=== PATIENT | female | born 1940 | race Caucasian/White ===

== ENCOUNTER → 2018-02-01 | Day surgery (SDC) | payer MEDICARE ==
[2018-01-28 11:20] VITALS: BMI 30.4
[~2018-02-01] MED LIST: Bupivacaine HCl 0.5%/Epinephrine 1:200,000/PF 30 ml Vial ONE; CEFAZOLIN/Water 2 GM/20 ML SYRINGE ONE; Fentanyl 100 MCG/2 ML VIAL ONE; HYDROmorphone 0.5 MG/0.5 ML SYRINGE ONE; Midazolam HCl 2 mg/2 ml Vial ONE; Thrombin 5000 UNITS/5 ML VIAL ONE
--- NOTE | 2018-02-01 08:27 | HP ---
HISTORY OF PRESENT ILLNESS: The patient presents for 2 separate complaints. First of which is fairl y convincing L5 radiculopathy manifesting as hip pain, posterolateral leg pain down to the calf in la teral aspect. She certainly has reason on imaging and then secondarily she has hip flexor weakness w ith significant L1-L2 stenosis with negative x-rays of her hip. The L5 pains have improved some with conservative treatment, but her weakness continues to be a significant problem and is now causing ga it disturbance and imbalance. She hopes to get this treated as soon as possible. PAST MEDICAL HISTORY: Significant for hypertension, hyperlipidemia, chronic pain problems. PAST SURGICAL HISTORY: Unspecified neck, right foot, left foot, lumbar decompression x2, and 2 addit ional neck surgeries. PHYSICAL EXAMINATION: NEUROLOGIC: The patient is alert and oriented x3. Gait is severely altered. She has 3/5 strength i n the left hip flexor muscles and now also has 4/5 strength in the right. ASSESSMENT: Lumbar stenosis. PLAN: Dr. Jones met with the patient, reviewed imaging, and advocated for an L1-L2 decompression. H e explained to the patient the risks, benefits, and alternatives of the procedure. The patient expre ssed understanding and would like to move forward with surgery as discussed. I do believe the patien t is mentally competent and capable of making medical decisions for herself and we will move forward with surgery as planned. Kvng Mendoza PA-C dictating for Dr. Jones.
--- NOTE | 2018-02-01 08:30 | OP ---
DATE OF PROCEDURE: 02/01/2018 SURGEON: Jimmy Jones M.D. APPLICATION PERFORMANCE ENGINEER: Ron Mendoza PA-C. INDICATION: Pain. DIAGNOSIS: Lumbar stenosis with associated neurogenic claudication. PROCEDURE: L1-2 lumbar decompression. ANESTHESIA: General. TECHNIQUE: The patient was brought into the operating room and placed under general anesthesia. She was flipped from a supine to prone position on the operating room table. A linear incision was plan delmer spanning L1 and L2. After prepping and draping and after an appropriate pause, the incision was created. The soft tissues were swept away from midline. Self-retaining retractors placed in the wou nd for optimal exposure. After confirming the appropriate level with C-arm fluoroscopy, an Adson angeline geurs as well as a high-speed cutting drill bit, 2, 3 and 4 mm Kerrisons were used to perform a thania ectomy at L1-2. After decompressing the L1-L2 segment, the wound was irrigated. Hemostasis was main tained throughout. The wound was then closed in anatomic layers and a pressure dressing was applied. There were no known procedural complications.
== END ==
LOC: SDC 05:29 → MERGE 11:02
PROVIDERS: ATTEND Neurological Surgery
PROC: 01NB0ZZ Release Lumbar Nerve, Open Approach (ICD-10-PCS; principal; 2018-02-01)
DX: M48.062 Spinal stenosis, lumbar region with neurogenic claudication (principal); I10 Essential (primary) hypertension; E78.5 Hyperlipidemia, unspecified; Z79.899 Other long term (current) drug therapy; Z98.890 Other specified postprocedural states
CPT/HCPCS: 76001; 96374; J0670; J1170; J2250; J3010

== ENCOUNTER 2018-05-20 09:34 | Outpatient (CLI) | payer MEDICARE ==
--- NOTE | 2018-05-20 11:27 | CT ---
CT LUMBAR SPINE: Multiple axial tomograms were obtained through the lumbar spine with multiplanar reconstruction. INDICATION: Lumbar radiculopathy. Prior back surgery. COMPARISON: Comparison is made to MRI lumbar spine dated 01/20/2017. FINDINGS: Vertebral body height is maintained. There are moderate to severe degenerative changes. Degenerativ e disk changes are seen at all levels with vacuum phenomenon noted at L1-2, L2-3, L4-5, and L5-S1. O steophytes in the lumbar vertebrae throughout, most prominent at L4, L5, and S1 levels. At L1-2, broad-based disk bulge flattens the thecal sac. Posterior laminectomy change. Facet hypert rophy without significant central canal stenosis. There is asymmetric disk bulge to the right which encroaches into the right foramina and may contact the exiting right L1 nerve root. At L2-3, diffuse disk bulge. Facet and ligamentous hypertrophy. Moderate central canal stenosis. A symmetric disk bulge to the left produces left foraminal encroachment and extends laterally on the le ft, possibly contacting the exiting left L2 nerve root. At L3-4, broad-based disk bulge with facet and ligamentous hypertrophy results in moderate central ca nal stenosis. Right foraminal narrowing due to disk bulge and facet hypertrophy. At L4-5, diffuse disk bulge with posterior osteophytes and broad-based disk bulge flattening the thec al sac. Prominent facet hypertrophy. Moderate to severe central canal stenosis and bilateral forami nal stenosis is present. There is a large gas pocket measuring 8-10 mm in the anterior spinal canal on the right which extends into the right foramina. This gas pocket displaces the exiting right L4 nerve root and probably dis places the traversing right L5 nerve root within the canal. This gas pocket represents protrusion fr om intervertebral body vacuum phenomenon at the L4-5 disk. At L5-S1: Loss of disk space. Mild disk bulge. Facet hypertrophy. No significant central canal st enosis. Bilateral foraminal stenosis. IMPRESSION: 1. Degenerative disk changes throughout the lumbar spine with vacuum phenomenon at multiple levels a s described. A large gas pocket is seen in the anterior spinal canal on the right at L4-5 extending into the right foramen as described above. 2. Central canal and foraminal stenosis at multiple levels as described. POS: [facility]
== END 2018-05-20 09:35 | disposition home or self-care (01) ==
LOC: TBSIIMAG 09:34
PROVIDERS: ATTEND Neurological Surgery
DX: M51.16 Intervertebral disc disorders with radiculopathy, lumbar region (principal); M99.84 Other biomechanical lesions of sacral region; M99.83 Other biomechanical lesions of lumbar region; M48.061 Spinal stenosis, lumbar region without neurogenic claudication
CPT/HCPCS: 72131

== ENCOUNTER 2018-07-11 07:57 | Outpatient (CLI) | payer MEDICARE ==
--- NOTE | 2018-07-11 10:13 | RAD ---
FOUR VIEWS OF THE LUMBOSACRAL SPINE WITH BENDING: COMPARISON: MRI LUMBAR SPINE 07/11/2018. HISTORY: Low back pain that radiates down the left leg with left leg weakness. FINDINGS: AP, lateral, flexion, and extension views of the lumbosacral spine were performed. There is interver tebral disk space narrowing at L4-L5 and L5-S1. There is slight retrodisplacement of L5 vertebral lesley dy in relation to S1. The alignment of the vertebral bodies is unchanged with flexion and extension. Moderate osteophytes are seen throughout the lumbar spine. Posterior facet arthrosis is seen in th e lumbar spine. IMPRESSION: Degenerative changes of the lumbar spine with unchanged alignment with bending. POS: [facility]
--- NOTE | 2018-07-11 10:45 | MRI ---
PRE AND POSTCONTRAST ENHANCED MRI IMAGES OF THE LUMBAR SPINE: DATE: 07/11/2018. COMPARISON: Comparison is made to a previous exam from 12/20/2016. TECHNIQUE: Multiplanar, multisequence pre- and postcontrast-enhanced MRI images of the lumbar spine obtained. RADIOGRAPHIC FINDINGS: T12-L1: There is some disk desiccation seen. There is mild facet hypertrophy. A small amount of fl uid is seen in the left T12-L1 facet joint. Left T12-L1 foraminal and far lateral broad-based disk p rotrusion is again seen unchanged since the previous exam. L1-2: The patient has interval L1 and L2 laminectomy changes and interval surgery at this level. So me epidural scarring is seen in the posterior aspect of the L1-2 epidural space. The central canal i s patent. There does appear to be a broad-based disk bulge. Moderate bilateral neural foraminal jenna rowing seen due to facet hypertrophic changes. L2-3: Bilateral facet and ligamentum flavum hypertrophy is seen. This results in mild central and l ateral recess stenosis. Moderate bilateral neural foraminal narrowing is also seen due to facet hype rtrophic changes. L3: There is an interosseous hemangioma seen. There is bilateral facet hypertrophy at L3-4 resultin g in a moderate degree of central and lateral recess stenosis extending into the epidural space. The re is grade I anterolisthesis of L3 on L4. The degree of central and lateral recess stenosis is paloma lar to previous comparison exam from 2017. L4-5: Disk desiccation is seen. There is a broad-based disk bulge with bilateral facet hypertrophy. This results in a mild to moderate central and lateral recess stenosis. There is moderate left and severe right L4-5 neural foraminal narrowing. There is a right L4-5 neural foraminal disk extrusion which was seen on the patient's previous comparison MRI and remains in place markedly compressing th e right exiting L4 nerve root. L5-S1: Disk desiccation is seen. There is a broad-based disk-osteophyte complex centrally compressi ng the thecal sac with moderate right and left neural foraminal narrowing seen. Bilateral facet hype rtrophic changes also seen. IMPRESSION: 1. Interval surgical changes seen at the posterior aspect of the L2 level. 2. Severe right L4-5 neural foraminal narrowing due to remaining right L4-5 neural foraminal narrowi ng. POS: [facility]
== END 2018-07-11 07:58 | disposition home or self-care (01) ==
LOC: SCSMRI 07:57
PROVIDERS: ATTEND Anesthesiology Pain Medicine
DX: M47.26 Other spondylosis with radiculopathy, lumbar region (principal); M48.061 Spinal stenosis, lumbar region without neurogenic claudication; Z98.890 Other specified postprocedural states
CPT/HCPCS: 72120; 72158; 82565

== ENCOUNTER 2018-07-12 09:01 | Inpatient (IN) | payer MEDICARE ==
[2018-07-12 09:33] LABS: #Basophils 0.1 thou/uL (0.0-0.2); #Lymphocytes 1.8 thou/uL (1.20-3.40); #Monocytes 0.7 thou/uL (0.11-0.59); #Neutrophils 7.1 thou/uL (1.40-6.50); %Basophils 0.6 % (0.0-1.0); %Eosinophils 0.4 % (0.0-10.0); %Lymphocytes 18.5 % (21.0-51.0); %Monocytes 7.3 % (0.0-10.0); %Neutrophils 73.1 % (42.0-75.0); Hemoglobin 14.7 g/dL (12.0-16.0); Mean Corpuscular HGB CONC 32.5 g/dL (32.0-36.0); Mean Corpuscular Hemoglobin 31.1 pg (27.0-31.0); Mean Corpuscular Volume 95.6 fL (78.0-98.0); Mean Platelet Volume 7.4 fL (7.4-10.4); Platelet Count 277 thou/uL (130-400); RBC Distribution Width 12.1 % (11.5-14.5); Red Blood Cell (RBC) Count 4.72 mill/uL (4.20-5.40); White Blood Cell (WBC) Count 9.8 thou/uL (4.8-10.8)
[2018-07-12 09:55] LABS: ALT (SGPT) 19 U/L (8-55); AST (SGOT) 20 U/L (5-34); Albumin 4.1 g/dL (3.4-4.8); Alkaline Phosphatase 86 U/L (40-150); Anion Gap 12 mmol/L (10-20); BUN (Urea Nitrogen) 16 mg/dL (9.8-20.1); Bilirubin, Total 1.1 mg/dL (0.2-1.2); CK (CPK) 27 U/L (29-168); Calc. Creatinine Clearance 0 mL/min (70-130); Calcium 9.9 mg/dL (7.8-10.44); Carbon Dioxide 30 mmol/L (23-31); Chloride 100 mmol/L (98-107); Estimated GFR-MDRD 73; Globulin 3.2 g/dL (2.4-3.5); Glucose 88 mg/dL (83-110); Potassium 4.7 mmol/L (3.5-5.1); Protein, Total 7.3 g/dL (6.0-8.3); Sodium 137 mmol/L (136-145)
[2018-07-12 09:59] LABS: Troponin I Less than 0.010 ng/mL (< 0.028)
--- NOTE | 2018-07-12 10:19 | RAD ---
PORTABLE CHEST: COMPARISON: 05/02/2011 study. HISTORY: The patient complained of low back pain and arrhythmia. FINDINGS: Heart size is enlarged. There is elevation to the left hemidiaphragm No signs of failure or focal i nfiltrates. IMPRESSION: 1. Elevated left hemidiaphragm. 2. Cardiomegaly. POS: [facility]
[2018-07-12] MEDS ORDERED: Fentanyl 100 MCG/2 ML VIAL ONE (10:24)
[2018-07-12] MEDS ORDERED: Diltiazem 125 MG/25 ML ONE (11:48)
[2018-07-12] MEDS ORDERED: Senokot S 8.6-50 MG TAB PO PRN (12:36)
[2018-07-12 13:52] LABS: CKMB 1.9 ng/mL (0-6.6); Troponin I Less than 0.010 ng/mL (< 0.028)
[2018-07-12] MEDS ORDERED: Acetaminophen 325 MG TAB ONE (13:54)
[2018-07-12 15:17] VITALS: BMI 31.4
[2018-07-12] MEDS: Acetaminophen 325 MG TAB PO PRN ×2 (17:31→21:38)
[2018-07-12 19:30] LABS: CKMB 1.5 ng/mL (0-6.6); Troponin I Less than 0.010 ng/mL (< 0.028)
--- NOTE | 2018-07-12 21:20 | HP ---
CHIEF COMPLAINT: Generalized weakness and palpitations. HISTORY OF PRESENT ILLNESS: The patient is a very pleasant 78-year-old female with past medical history of hypertension, hyperlipidemia, and chronic back pain, who presented to the hospital with complaints of on and off weakness, falls, flushing-like sensation going on for the past couple of weeks. The patient states that she has been noticing at home whenever she takes the blood pressure that her heart rate has been kind of elevated, so she came in to her primary care doctor's office today, found her heart rate to be 144, and then she was sent here for further evaluation. The patient stated that back in January, she did have a back surgery; however, she has to go back to surgery in the next few weeks since she has a disk herniation, which was not fixed on her prior surgery. The patient states that she has been having steroid shots. She has had 4 steroid injections in the last few weeks to months. The patient denies any chest pain or chest tightness. She denies any nausea, vomiting, or diarrhea. She just states that she feels weak, has been falling, and also just feels flushed when her heart rate is elevated. She denies any diaphoresis or any palpitations. The patient states that normally she does have left-sided lower extremity weakness from her disk herniation. PAST MEDICAL HISTORY: 1. Hypertension. 2. Hyperlipidemia. 3. Chronic back pain. PAST SURGICAL HISTORY: She has had lumbar decompression x2, two additional back surgeries. REVIEW OF SYSTEMS: All negative except for the ones mentioned above in the HPI. ALLERGIES: SHE HAS NO KNOWN DRUG ALLERGIES. MEDICATIONS: She currently does not have a list of her medications. FAMILY HISTORY: No history of diabetes or hypertension. SOCIAL HISTORY: She smokes cigarettes once in a while whenever she gets stressed. She does drink about 3 alcoholic beverages a day. Denies any history of withdrawal. She is a full code. She denies any other recreational drug use. PHYSICAL EXAMINATION: VITAL SIGNS: The patient initially when she came in, her heart rate was in the 139. She was given Cardizem bolus and was started on a drip. Currently, she is at 97. Blood pressure is 130s/80s, respirations are 18, 97.6 temperature, and 95% on room air. GENERAL: She is awake, alert, and oriented x3. Does not appear in any distress. CV: She is irregularly irregular, and no tachycardia is noted. LUNGS: She got mild crackles to the bilateral lower lung area. ABDOMEN: Soft and nontender. Bowel sounds are present x2. EXTREMITIES: She has no edema. Pedal pulses are present x2. Neurovascular sims, she does have left lower extremity weakness compared to her right. BACK: She does have some pain on palpation to her left lower back area. SKIN: No cuts, lesions, or bruises noted. HEENT: The patient does not appear to be dehydrated. LABORATORY DATA: Labs are as of the following. WBCs of 9.8, hemoglobin of 14.7, hematocrit of 45.1, and platelets of 277. Chemistries; sodium of 137, potassium of 4.7, BUN of 10, and creatinine of 0.77. Creatine kinase of 27. Troponin x1 was negative. LFTs are normal. D-dimer is pending. Chest x-ray that was done indicated elevated left hemidiaphragm and cardiomegaly. ASSESSMENT AND PLAN: The patient is a very pleasant 78-year-old female, who presents to the hospital with complaints of generalized weakness and flushing-like symptoms, and was found to have a heart rate in the 140s. 1. Atrial fibrillation/atrial flutter with rapid ventricular response. The patient was given Cardizem IV, and she has been started on a drip. Her CHADS-VASc score is between 3 to 4 points; however, given the fact that she has been getting steroid shots in her back and also planning on having surgery, I will hold off on the anticoagulation for now until she was seen by Cardiology. We will also get an echocardiogram for this patient. We will trend her troponins. If her D-dimer is elevated, I will do a CTA to rule out PE, but however, I think her atrial fibrillation/atrial flutter is a combination of pain which she has currently significantly and also she likes to drink her alcoholic beverages. 2. History of hypertension. We will continue her home medications. 3. Deep venous thrombosis prophylaxis. We will just put the patient on baby aspirin for now until she is evaluated by Cardiology. We will also put some SCDs. Job ID: [id number]
[2018-07-12] MEDS: Atorvastatin Calcium 40 MG TAB PO SCH (21:37)
--- NOTE | 2018-07-13 00:52 | CON ---
DATE OF CONSULTATION: 07/12/2018 HISTORY OF PRESENT ILLNESS: Sandra Lu is a 78-year-old white female, whom I have apparently seen in the past. In the past, she also gone by Cami Peterson. She states that I saw her in the office; however, I cannot find those records at this time. She has had problems with multiple back surgeries and most recent was in 01/2018. She continues to have significant back and leg pain and leg weakness. Consideration is given to another back surgery in the near future. She has been noticing increasing fatigue, increasing dyspnea on exertion, and may at times feel her heart racing for the last 2 to 3 weeks. She went to see her primary physician and was noted to have a rapid beat and was sent to the emergency room. She did have back injection on 07/[address] Potter. PAST MEDICAL HISTORY: Back problems. She denies any history of hypertension, diabetes, or hypercholesterolemia. MEDICATIONS: Gabapentin 100 mg p.r.n. ALLERGIES: CODEINE CAUSES GI UPSET. PAST SURGICAL HISTORY: Cholecystectomy, hysterectomy, bilateral foot surgery, bilateral knee replacement, neck surgery, and back surgery x3. SOCIAL HISTORY: She has 2 to 3 cigarettes per week. She occasionally has alcohol. REVIEW OF SYSTEMS: A 10-point review of systems was unremarkable except as noted above. PHYSICAL EXAMINATION: VITAL SIGNS: Blood pressure 140/68, pulse of 70, atrial flutter on the monitor. HEENT: PERRL. NECK: Supple. CHEST: Clear. CARDIAC: S1 and S2 normal without any S3 or S4. There is a 2/6 holosystolic murmur at left lower sternal border. Carotid upstrokes normal without bruits. ABDOMEN: Obese. Normal bowel sounds. Nontender. EXTREMITIES: Revealed no clubbing, cyanosis, or edema. NEUROLOGIC: Grossly intact. LABORATORY DATA: EKG on admission reveals atrial flutter with 2:1 block with rate of 139 per minute. She has been placed on intravenous Cardizem and heart rates running in the 70s with 4:1 block. Hemoglobin 14.7, hematocrit 45.1, white count 9800, and platelets 277,000. D-dimer less than 0.27. Sodium 137, potassium 4.7 , chloride 100, carbon dioxide 30, BUN 16, and creatinine 0.77. MB and troponin I are normal x2. IMPRESSION: 1. Atrial flutter, rate controlled now with intravenous Cardizem. 2. Possible fourth back surgery in the near future. She just had back injection with Dr. Potter 3 days ago. 3. Obesity. 4. Smoker. PLAN: The patient will be continued on intravenous Cardizem. Echocardiogram will be performed to evaluate left ventricular function. She should be anticoagulated; however, we will check with Neurosurgery since the patient had recent spinal injections. This is Sunday evening and Sunday morning, Electrophysiology will be consulted and hopefully, she can undergo flutter ablation that day. Job ID: [id number] [facility]
[2018-07-13 05:08] LABS: #Eosinphils 0.1 thou/uL (0.0-0.7); #Lymphocytes 1.7 thou/uL (1.20-3.40); #Monocytes 0.6 thou/uL (0.11-0.59); #Neutrophils 3.2 thou/uL (1.40-6.50); %Basophils 0.7 % (0.0-1.0); %Eosinophils 2.1 % (0.0-10.0); %Lymphocytes 29.8 % (21.0-51.0); %Monocytes 11.4 % (0.0-10.0); %Neutrophils 55.9 % (42.0-75.0); Hemoglobin 13.6 g/dL (12.0-16.0); Mean Corpuscular HGB CONC 33.2 g/dL (32.0-36.0); Mean Corpuscular Volume 96.5 fL (78.0-98.0); Mean Platelet Volume 7.7 fL (7.4-10.4); Platelet Count 224 thou/uL (130-400); Red Blood Cell (RBC) Count 4.26 mill/uL (4.20-5.40); White Blood Cell (WBC) Count 5.6 thou/uL (4.8-10.8)
[2018-07-13 05:31] LABS: Anion Gap 10 mmol/L (10-20); BUN (Urea Nitrogen) 11 mg/dL (9.8-20.1); Calc. Creatinine Clearance 97 mL/min (70-130); Calcium 9.1 mg/dL (7.8-10.44); Carbon Dioxide 28 mmol/L (23-31); Chloride 103 mmol/L (98-107); Cholesterol 169 mg/dl (< 200 Desired); Estimated GFR-MDRD 83; Glucose 95 mg/dL (83-110); HDL Cholesterol 42 mg/dL (>60 Neg Risk); LDL Cholesterol, Calculated 89 mg/dL; Potassium 3.7 mmol/L (3.5-5.1); Sodium 137 mmol/L (136-145); Triglycerides 190 mg/dL (Less than 150)
[2018-07-13] MEDS: Acetaminophen 325 MG TAB PO PRN (08:43)
[2018-07-13] MEDS ORDERED: HYDROcodone/Acetaminophen 5/325 mg Tablet PO PRN (11:14)
[2018-07-13] MEDS: Diltiazem 125 MG in Sodium Chloride 0.9% 100 ML IVPB SCH (11:37)
[2018-07-13] MEDS: Lorazepam 0.5 MG TAB PO PRN ×3 (11:49→20:29)
[2018-07-13 11:50] LABS: Bilirubin Negative (Negative); Blood, Urine Negative (Negative); Clarity CLEAR (Clear); Glucose, Urine (Dipstick) Negative (Negative); Leukocyte Negative (Negative); Nitrite Negative (Negative); Protein, Urine (Dipstick) Negative (Neg-Trace); Specific Gravity, Urine 1.012 (1.002-1.036); Urobilinogen 0.2 mg/dL (0.2-1.0)
[2018-07-13] MEDS: HYDROcodone/Acetaminophen 5/325 mg Tablet PO PRN ×3 (11:50→20:31)
--- NOTE | 2018-07-13 12:55 | PRG ---
DATE OF SERVICE: 07/13/2018 SUBJECTIVE: The patient was seen and examined at the bedside. She is crying. She has some diarrhea and some urinary frequency. She has headache. Her daughter is present by her bedside during my visit. OBJECTIVE: VITAL SIGNS: Blood pressure is 115/69, pulse is 69, temperature is 97.9, respiratory rate is 20, and O2 saturation is 95% on room air. HEENT: Head is atraumatic and normocephalic. Eyes are PERRLA. Sclerae are nonicteric. Oral mucosa is moist. NECK: Supple. LUNGS: Clear. HEART: S1 and S2. Irregularly irregular. No S3. No S4. ABDOMEN: Soft, nontender, nondistended. Bowel sounds are present. No organomegaly. EXTREMITIES: No clubbing, cyanosis, or edema. NEUROLOGIC: She is alert and oriented x4. There are no sensory or motor deficits present. Cranial nerves are intact. She is tearful. LABORATORY DATA: Labs showed normal CBC, normal chemistry, normal 3 sets of troponins. Triglycerides 190, total cholesterol 169, LDL 89, HDL 42. IMPRESSION: 1. Acute flutter/atrial fibrillation with rapid ventricular response. The patient was seen by Dr. Mosher, who agrees with current regimen with Cardizem drip and EP consult. Apparently, she had injection into her spine in the last few days by Dr. Potter, and we are confirming how we can use anticoagulation on this lady. At this point, this was obtained from Dr. Potter, who was called. 2. Hypertension. 3. Alcoholism. Apparently, she drinks several drinks a day for long time, and most likely, that is the reason why she is tearful and anxious. Most likely, those are withdrawal symptoms. We will start her on benzodiazepine every 4 hours p.r.n. 0.5 mg and Vicodin p.r.n. for her headache. We will check her urine for possible urinary tract infection and continue her Cardizem drip. Job ID: [id number]
[2018-07-13] MEDS: Apixaban 5 MG TAB PO SCH (20:29)
[2018-07-13] MEDS: Atorvastatin Calcium 40 MG TAB PO SCH (20:29)
[2018-07-14] MEDS: Lorazepam 0.5 MG TAB PO PRN ×4 (01:13→21:07)
[2018-07-14] MEDS: Apixaban 5 MG TAB PO SCH ×2 (08:34→21:07)
[2018-07-14] MEDS: HYDROcodone/Acetaminophen 5/325 mg Tablet PO PRN ×3 (08:35→21:09)
[2018-07-14] MEDS: Diltiazem 125 MG in Sodium Chloride 0.9% 100 ML IVPB SCH (12:01)
[2018-07-14] MEDS ORDERED: Mag-Al Plus 1200 MG/1200 MG/120 MG/30 ML UDCUP PO PRN (13:44)
[2018-07-14] MEDS: Atorvastatin Calcium 40 MG TAB PO SCH (21:17)
--- NOTE | 2018-07-15 07:50 | PRG ---
DATE OF SERVICE: 07/14/2018 SUBJECTIVE: The patient is seen and examined at the bedside. She feels better today. She is less anxious and nervous. OBJECTIVE: VITAL SIGNS: Blood pressure is 151/80, pulse is 69, temperature 97.5, respiratory rate is 16, and pulse oximetry is 94% on room air. HEENT: Head is atraumatic and normocephalic. Eyes are PERRLA. Sclerae are nonicteric. Oral mucosa is moist. NECK: Supple. No JVD. LUNGS: Left base is dull to percussion. No wheezing. No rales. HEART: S1 and S2. Irregularly irregular. No S3. No S4. ABDOMEN: Soft, nontender, nondistended. EXTREMITIES: 1+ peripheral edema, similar bilaterally. NEUROLOGIC: She is alert and oriented x4. There are no any motor or sensory deficits present. Cranial nerves are intact. LABORATORY DATA: None today. IMPRESSION: 1. Acute flutter/atrial fibrillation with rapid ventricular response, now under control on Cardizem drip. She is going to see fur comber tomorrow, and they will make decision about how we can manage her problem. She is started on apixaban by Dr. Mosher, her enzyme chemist, during this hospitalization. 2. Hypertension. 3. Alcoholism. The patient is on scheduled dose of benzodiazepines and she is doing significantly better. She is not nervous anymore. Job ID: [id number]
[2018-07-15] MEDS: HYDROcodone/Acetaminophen 5/325 mg Tablet PO PRN ×4 (08:45→21:28)
[2018-07-15] MEDS: Apixaban 5 MG TAB PO SCH ×2 (09:40→21:29)
--- NOTE | 2018-07-15 11:33 | PDOC.PN ---
- Subjective Encounter Start Date: 07/15/18 Encounter Start Time: 11:32 Ms. Lu was seen today in follow-up of Atrial Flutter. She does not have any complaint this morning. - Objective Resuscitation Status - Order Detail: 07/12/18 12:36 Resuscitation Status Routine Resuscitation Status: FULL: Full Resuscitation MAR Reviewed: Yes Vital Signs & Weight: Vital Signs (12 hours) Temp Pulse Resp BP BP Pulse Ox 07/15/18 08:00 97.6 F 77 20 129/81 129/81 93 L 07/15/18 03:27 97.3 F L 66 16 107/77 92 L Weight Weight 194 lb 7 oz I&O: 07/14/18 07/15/18 07/16/18 06:59 06:59 06:59 Intake Total 900 1778 Balance 900 1778 Result Diagrams: 07/13/18 04:36 07/13/18 04:36 Phys Exam - Physical Examination HEENT: PERRLA Respiratory: no wheezing, no rales, no rhonchi, clear to auscultation bilateral Cardiovascular: RRR 2/6 systolic murmur, at the LSB Gastrointestinal: soft, non-tender, no distention Musculoskeletal: pulses present, edema present Dx/Plan (1) Atrial flutter Code(s): I48.92 - UNSPECIFIED ATRIAL FLUTTER Status: Acute (2) Hypertension Code(s): I10 - ESSENTIAL (PRIMARY) HYPERTENSION Status: Chronic (3) Hyperlipidemia Code(s): E78.5 - HYPERLIPIDEMIA, UNSPECIFIED Status: Acute - Plan * Atrial Flutter- her heart rate is stable- plan is for ablation tomorrow * HTN- blood pressure has been stable * Hyperlipidemia- stable.
[2018-07-15] MEDS: Lorazepam 0.5 MG TAB PO PRN ×3 (12:49→21:28)
[2018-07-15] MEDS: Diltiazem 125 MG in Sodium Chloride 0.9% 100 ML IVPB SCH (14:52)
[2018-07-15 17:26] LABS: #Eosinphils 0.2 thou/uL (0.0-0.7); #Lymphocytes 2.1 thou/uL (1.20-3.40); #Monocytes 0.7 thou/uL (0.11-0.59); #Neutrophils 5.6 thou/uL (1.40-6.50); %Basophils 0.5 % (0.0-1.0); %Eosinophils 1.9 % (0.0-10.0); %Lymphocytes 24.2 % (21.0-51.0); %Monocytes 7.9 % (0.0-10.0); %Neutrophils 65.4 % (42.0-75.0); Hemoglobin 15.6 g/dL (12.0-16.0); Mean Corpuscular Hemoglobin 32.4 pg (27.0-31.0); Mean Corpuscular Volume 98.2 fL (78.0-98.0); Mean Platelet Volume 7.5 fL (7.4-10.4); Platelet Count 265 thou/uL (130-400); Red Blood Cell (RBC) Count 4.83 mill/uL (4.20-5.40); White Blood Cell (WBC) Count 8.6 thou/uL (4.8-10.8)
[2018-07-15] MEDS: Atorvastatin Calcium 40 MG TAB PO SCH (21:29)
--- NOTE | 2018-07-15 22:45 | CON ---
DATE OF CONSULTATION: 07/15/2018 ELECTROPHYSIOLOGY CONSULTATION REASON FOR CONSULTATION: Typical atrial flutter with RVR. HISTORY OF PRESENT ILLNESS: Ms. Lu is a pleasant 78-year-old woman, who has followed with Dr. Mosher in the remote past. She struggles daily with chronic back pain and has had surgery in January of this year. She continues to have significant back pain and neuropathy with this. She was undergoing preoperative workup for a repeat spinal surgery this coming week, but was found to have an elevated heart rate and was sent to her primary care provider. They found she was in atrial flutter with RVR and she was sent to the emergency room. She was admitted for observation and placed on oral anticoagulation with Eliquis. She was having fatigue, shortness of breath, and dyspnea on exertion for the past 2 to 3 weeks. Right now, she is mostly rate controlled on diltiazem drip, but continues to have the associated symptoms as mentioned. She remains out of rhythm. She is discouraged and this postpones her upcoming back procedure. REVIEW OF SYSTEMS: 12-point review of systems is conducted and positive for fatigue, dyspnea on exertion, shortness of breath. Otherwise, negative and as per mentioned in HPI. PAST MEDICAL HISTORY: Chronic back pain and lumbar stenosis. ALLERGIES: CODEINE (GI UPSET). MEDICATIONS: Gabapentin 100 mg p.r.n. PAST SURGICAL HISTORY: Cholecystectomy, hysterectomy, bilateral foot surgery, bilateral knee replacements, neck surgery, and back surgery x3. SOCIAL HISTORY: Two to three cigarettes a week, occasional alcohol, negative for illicit drugs. FAMILY HISTORY: Negative for sudden cardiac or early onset coronary artery disease. PHYSICAL EXAMINATION: VITAL SIGNS: Temperature 97.5, blood pressure 127/80, heart rate is 68, respirations 20, oxygen is 96% on room air. GENERAL: Ms. Lu is alert and oriented. Her speech is clear. Affect is appropriate. She is well groomed and well nourished. She is slightly obese. HEENT: She is normocephalic and atraumatic. Sclerae anicteric. EOMs are intact. Oral mucosa is moist and pink with adequate dentition. NECK: Her neck is supple without jugular venous distention. PMI is nondisplaced. LUNGS: Clear to auscultation bilaterally without wheezes, crackles, or rhonchi. HEART: Her heart rate is irregular and rapid. ABDOMEN: Soft, nontender without palpable masses. Hepatojugular reflux is negative. EXTREMITIES: Warm and dry to touch without clubbing, cyanosis, or edema. NEUROLOGIC: Grossly intact and nonfocal. LABORATORY DATA: Hematology was reviewed and unremarkable. Chemistry: Potassium 3.7, creatinine 0.69. Serial troponins were negative. ALT and AST were within normal limits. EKG and telemetry reflects typical CTI-dependent atrial flutter with RVR, currently rate controlled on a diltiazem drip. IMPRESSION: 1. Typical CTI-dependent flutter with rapid ventricular response. 2. CHADS-VASc score of at least 3 on the basis of advanced age and female gender, oral anticoagulation is indicated, currently on Eliquis 5 mg p.o. b.i.d. PLAN AND RECOMMENDATIONS: A long discussion was had with Ms. Lu about atrial arrhythmias, treatment plans and options. We discussed medical management versus ablation. At this point, only right-sided atrial flutter is seen and a recommendation is for CTI ablation tomorrow. We discussed risks, benefits, and alternatives. Risks include hematoma, bleeding at the groin site, and perforation of the heart, in addition risks for recurrent arrhythmias following the ablation. The patient voices understanding and is willing to proceed. We will keep her n.p.o. after midnight and anticipate ablation tomorrow morning. She could potentially go home tomorrow evening when she is recovered, but if the ablation is performed tomorrow afternoon, we would likely keep her overnight for observation before recommending discharge the following morning. Following the ablation, she will require oral anticoagulation for at least 30 days. However, if she is in dire need of her spinal surgery, this could be taken into consideration. Her oral anticoagulation regimen maybe cut short if deemed appropriate. This was all discussed with the patient, who voices understanding and is eager to have resolution with this by means of an ablation tomorrow. For now, continue rate control strategy with diltiazem, titrate to keep her heart rate below 100. Job ID: [id number]
[2018-07-16] MEDS: HYDROcodone/Acetaminophen 5/325 mg Tablet PO PRN ×4 (02:18→22:54)
[2018-07-16] MEDS: Lorazepam 0.5 MG TAB PO PRN ×3 (02:18→21:15)
[2018-07-16] MEDS ORDERED: Fentanyl 100 MCG/2 ML VIAL ONE (12:25)
[2018-07-16] MEDS ORDERED: PROPOFOL 20 ML ONE (13:42)
[2018-07-16] MEDS ORDERED: Lidocaine 1% (PF) 30 ML VIAL ONE (14:04)
[2018-07-16] MEDS ORDERED: Heparin 10,000 UNITS/1 ML VIAL ONE (14:04)
[2018-07-16] MEDS ORDERED: Propofol 500 MG/50 ML VIAL ONE ×2 (14:11→14:47)
[2018-07-16] MEDS ORDERED: PHENYLEPHRINE-NS 100 MCG/ML 10 ML SYRINGE ONE ×2 (14:36→16:02)
[2018-07-16] MEDS ORDERED: DOPamine 400 MG/D5W 250 ML 250 ML ONE (15:15)
[2018-07-16] MEDS ORDERED: PROPOFOL 200 MG/20 ML VIAL ONE (16:02)
--- NOTE | 2018-07-16 16:22 | PDOC.PN ---
- Subjective Encounter Start Date: 07/16/18 Encounter Start Time: 10:55 Ms. Lu was seen today in follow-up of Atrial Flutter. She does not have any complaints this morning - Objective Resuscitation Status - Order Detail: 07/12/18 12:36 Resuscitation Status Routine Resuscitation Status: FULL: Full Resuscitation MAR Reviewed: Yes Vital Signs & Weight: Vital Signs (12 hours) Temp Pulse Resp BP Pulse Ox 07/16/18 08:00 97.4 F L 68 16 145/93 H 93 L Weight Weight 194 lb 7 oz I&O: 07/15/18 07/16/18 07/17/18 06:59 06:59 06:59 Intake Total 1778 780 Balance 1778 780 Result Diagrams: 07/15/18 17:19 07/13/18 04:36 Phys Exam - Physical Examination HEENT: PERRLA Respiratory: no wheezing, no rales, no rhonchi, clear to auscultation bilateral Cardiovascular: RRR, no significant murmur, no rub Gastrointestinal: soft, non-tender, no distention, positive bowel sounds Musculoskeletal: no edema, pulses present Dx/Plan (1) Atrial flutter Code(s): I48.92 - UNSPECIFIED ATRIAL FLUTTER Status: Acute (2) Hypertension Code(s): I10 - ESSENTIAL (PRIMARY) HYPERTENSION Status: Chronic (3) Hyperlipidemia Code(s): E78.5 - HYPERLIPIDEMIA, UNSPECIFIED Status: Acute - Plan * Atrial Flutter- her heart rate is controlled * HTN- blood pressure is controlled * Plan is for Ablation today.
[2018-07-16] MEDS ORDERED: Acetaminophen/Codeine 30-300mg Tablet PO PRN ×2 (17:30)
[2018-07-16] MEDS ORDERED: DOPamine 400 MG/D5W 250 ML 250 ML IVPB PRN (17:31)
[2018-07-16] MEDS ORDERED: Ondansetron ODT 4 MG TAB PO PRN (18:50)
--- NOTE | 2018-07-16 20:27 | RAD ---
RADIOGRAPH CHEST 1 VIEW: Date: 07/16/18 Time: 5:23 p.m. HISTORY: 78-year-old female status post operative ablation. No additional information available. COMPARISON: 07/12/18, 9:37 a.m. FINDINGS: ACDF hardware in C-spine. Large masses at right medial posterior lung base, and occupying the lower t wo-thirds of the left hemithorax, The one on the left has a large air bubble and is consistent with a large hiatal hernia or diaphragmatic hernia. The mass on the right is probably also a right sided di aphragmatic hernia. There is no pulmonary edema or pulmonary venous engorgement. No pneumothorax. Rig ht lateral costophrenic angle is sharp. No major change overall compared to 07/12/18 or 05/02/11. IMPRESSION: 1. Bilateral large hiatal and/or diaphragmatic hernias, chronic. 2. No pulmonary edema. 3. The lower two-thirds of the left lung are obscured by the large left sided hernia. DIETER [] POS: GEOFFREY
[2018-07-16] MEDS: Atorvastatin Calcium 40 MG TAB PO SCH (21:12)
[2018-07-16] MEDS: Apixaban 5 MG TAB PO SCH (21:13)
--- NOTE | 2018-07-16 22:50 | OP ---
DATE OF PROCEDURE: 07/16/2018 TYPE OF STUDY: Electrophysiology study and radiofrequency ablation report. REASON FOR PROCEDURE: Mrs. Lu is a 78-year-old woman with prior history of moderate aortic stenosis, chronic back pain, smoking, preserved IV function prior to the procedure. She presented with typical atrial floor and here for ablation. DESCRIPTION OF PROCEDURE: The patient received propofol by Anesthesia specialist. After adequate level of sedation achieved, the right femoral venous area was prepped, draped, and anesthestized using subcutaneous lidocaine. Two 8-Hungarian sheaths were introduced using multipurpose needle and ultrasound guidance. After this, a decapolar CS catheter was introduced through the right atrium, His bundle, right ventricle in a CS position. The thermodilution SG catheter was advanced through the right atrium and 3D map of the right atrium was performed demonstrating a medium-sized isthmus. Post pacing interval pacing of the cavotricuspid isthmus matching the tachycardia cycle length about 240 milliseconds. Following that, cavotricuspid isthmus ablation was performed, during which the flutter terminated. Of note, a very long sinus node recovery time was noted, it was 3000 milliseconds and following that, the heart rates were very slow. Hence pacing continued. The transisthmus time has increased from initial 40 milliseconds to 190 milliseconds. Transisthmus block was demonstrated by the longest transisthmus time adjacent to the ablation line. Following that, dopamine was administered and these findings were repeated on dopamine as well. Total ablation of 10 lesions, total ablation time of 4 minutes and 43 seconds. CONCLUSION: 1. Successful ablation of typical isthmus-dependent flutter. 2. Very prolong sinus node recovery time. We will attempt to wean the patient off pacing. If it is not successful, she might need chronic pacing therapy. Job ID: [id number] [facility]
[2018-07-17] MEDS: Lorazepam 0.5 MG TAB PO PRN ×5 (04:06→20:54)
[2018-07-17] MEDS: HYDROcodone/Acetaminophen 5/325 mg Tablet PO PRN ×5 (04:06→20:55)
[2018-07-17] MEDS: Apixaban 5 MG TAB PO SCH (08:12)
[2018-07-17] MEDS ORDERED: Enoxaparin Sodium 80 MG/0.8 ML SYRINGE SC SCH ×2 (10:00)
--- NOTE | 2018-07-17 11:46 | PDOC.PN ---
- Subjective Encounter Start Date: 07/17/18 Encounter Start Time: 10:30 Ms. Lu was seen today in follow-up of Atrial flutter. She does not have any problems this morning. - Objective Resuscitation Status - Order Detail: 07/12/18 12:36 Resuscitation Status Routine Resuscitation Status: FULL: Full Resuscitation MAR Reviewed: Yes Vital Signs & Weight: Vital Signs (12 hours) Temp Pulse Resp BP BP Pulse Ox 07/17/18 08:10 107/63 95 07/17/18 07:11 98.2 F 56 L 20 107/63 95 07/17/18 04:00 97.4 F L 58 L 19 106/73 94 L 07/17/18 00:05 102/64 07/17/18 00:00 97.3 F L 62 18 102/64 94 L Weight Weight 194 lb 7 oz I&O: 07/16/18 07/17/18 07/18/18 06:59 06:59 06:59 Intake Total 780 120 640 Balance 780 120 640 Result Diagrams: 07/15/18 17:19 07/13/18 04:36 Phys Exam - Physical Examination HEENT: PERRLA Respiratory: no wheezing, no rales, no rhonchi, clear to auscultation bilateral Cardiovascular: RRR, no significant murmur, no rub Gastrointestinal: soft, non-tender, no distention, positive bowel sounds Musculoskeletal: no edema Dx/Plan (1) Atrial flutter Code(s): I48.92 - UNSPECIFIED ATRIAL FLUTTER Status: Acute (2) Hypertension Code(s): I10 - ESSENTIAL (PRIMARY) HYPERTENSION Status: Chronic (3) Hyperlipidemia Code(s): E78.5 - HYPERLIPIDEMIA, UNSPECIFIED Status: Acute - Plan * Atrial Flutter- she is post Ablation. Her heart rate has been a bit slow. Discussed with Dr. Looney- he would like to monitor her overnight * HTN- blood pressure is stable
--- NOTE | 2018-07-17 11:59 | PDOC.CTH ---
Cardiology Progress Note - Subjective EP PROGRESS NOTE: Patient seen and evaluated. No new cardiac concerns or complaints today. Denies heart racing, palpitations, chest pain/pressure, dizziness, or passing out. No stroke like symptoms. Last night she was having headache and was given [place] which then caused nausea. PRN zofran was ordered. Both headache and nausea have resolved. She continues to have bradycardia but is asymptomatic with it. She has been out of been but not walking. - Objective Vital Signs Temp Pulse Resp BP BP Pulse Ox 07/17/18 11:52 97.7 F 53 L 16 115/70 93 L 07/17/18 08:10 107/63 95 07/17/18 07:11 98.2 F 56 L 20 107/63 95 07/17/18 04:00 97.4 F L 58 L 19 106/73 94 L 07/17/18 00:05 102/64 07/17/18 00:00 97.3 F L 62 18 102/64 94 L Weight 194 lb 7 oz 07/16/18 07/17/18 07/18/18 06:59 06:59 06:59 Intake Total 780 120 640 Balance 780 120 640 - Physical Examination General/Neuro: alert & oriented x3, NAD Neck: carotid US brisk, no JVD present Lungs: CTA, unlabored respirations Heart: PMI normal, RRR Abdomen: NT/ND, soft - Telemetry Telemetry Rhythm: junctional bradycardia - Labs Result Diagrams: 07/15/18 17:19 07/13/18 04:36 Troponin/CKMB CK-MB (CK-2) 1.5 ng/mL (0-6.6) 07/12/18 18:23 Troponin I Less than 0.010 ng/mL (< 0.028) 07/12/18 18:23 - Assessment/Plan 1. Atrial flutter, typical -s/p CTI ablation. No further atrial flutter seen since ablation yesterday 2. Junctional bradycardia -presented once atrial flutter broke during ablation. HR 40s. Asymptomatic at rest and getting OOB. walking not attempted. -possibly related to AV [place] blocking agents she had been received and may resolve as these agents wash out -if persists, consider permanent pacemaker implant which was discussed with Dr. Mosher 3. CHADS2-VASC: 3 -placed on lovenox for possible need for PPM - will require continued eliquis x 30 days from time of ablation.
[2018-07-17] MEDS: Atorvastatin Calcium 40 MG TAB PO SCH (20:54)
--- NOTE | 2018-07-17 22:04 | EKG ---
Test Reason : STAT Blood Pressure : / mmHG Vent. Rate : 060 BPM Atrial Rate : 060 BPM P-R Int : 178 ms QRS Dur : 092 ms QT Int : 436 ms P-R-T Axes : 059 047 071 degrees QTc Int : 436 ms Normal sinus rhythm with sinus arrhythmia RSR' or QR pattern in V1 suggests right ventricular conduction delay Borderline ECG Confirmed by Jacob WHARTON ([id number]) on 07/17/2018 10:04:17 PM Referred By: BALBIR Confirmed By:Jacob WHARTON
--- NOTE | 2018-07-17 22:49 | ECHO ---
DATE OF SERVICE: 07/16/18 REASON FOR PROCEDURE: The patient is a 78-year-old woman with history of back pain and preop for a back surgery she was fou nd to be in atrial flutter. She is somewhat dyspneic. She is here for a DESTINEE prior to planned atrial f lutter ablation and suboptimal anticoagulation was achieved so far. PROCEDURE: The patient received propofol by Anesthesia specialist. After adequate level of sedation achieved, t he standard transesophageal echocardiogram probe was passed into the esophagus without difficulty. P atient tolerated the procedure well, no complications noted. RESULTS: Left atrium is mildly dilated. The left atrial appendage is visualized and contains no clots. Only on e pulmonary vein was seen on the left side. The interatrial septum is free of defect. The mitral caitlyn ve has moderate regurgitation. Mild tricuspid regurgitation seen. The aortic valve is sclerotic and markedly stenotic. Pericardial space without significant effusion. The visualized portion of aorta r eveals no aneurysm or dissection. CONCLUSION: 1. No intracardiac clots. 2. Left ventricular ejection fraction is 60-65%. 3. Moderate aortic stenosis. 4. Mild to moderate aortic regurgitation. 5. Moderate mitral regurgitation. PLAN: Proceed with ablation procedure.
[2018-07-18 08:29] VITALS: BP 130/71; TEMP 98.4
[2018-07-18] MEDS ORDERED: Apixaban 5 MG TAB PO SCH ×2 (10:21→21:00)
--- NOTE | 2018-07-18 11:03 | PDOC.PN ---
- Subjective Encounter Start Date: 07/18/18 Encounter Start Time: 11:01 Ms. Lu was seen today in follow-up of Atrial Flutter. She does not have any complaints. She has been in sinus rhythm. - Objective Resuscitation Status - Order Detail: 07/12/18 12:36 Resuscitation Status Routine Resuscitation Status: FULL: Full Resuscitation MAR Reviewed: Yes Vital Signs & Weight: Vital Signs (12 hours) Temp Pulse Resp BP BP Pulse Ox 07/18/18 08:05 130/71 07/18/18 08:00 98.4 F 66 16 130/71 91 L 07/18/18 07:10 94 L 07/18/18 04:03 116/66 07/18/18 04:00 98.7 F 62 18 116/66 92 L 07/18/18 00:01 106/68 07/18/18 00:00 98.4 F 55 L 18 106/68 94 L Weight Weight 194 lb 7 oz I&O: 07/17/18 07/18/18 07/19/18 06:59 06:59 06:59 Intake Total 120 1440 300 Balance 120 1440 300 Result Diagrams: 07/15/18 17:19 07/13/18 04:36 Phys Exam - Physical Examination HEENT: PERRLA Respiratory: no wheezing, no rales, no rhonchi, clear to auscultation bilateral Cardiovascular: RRR, no significant murmur, no rub Gastrointestinal: soft, non-tender, no distention, positive bowel sounds Musculoskeletal: no edema Dx/Plan (1) Atrial flutter Code(s): I48.92 - UNSPECIFIED ATRIAL FLUTTER Status: Acute (2) Hypertension Code(s): I10 - ESSENTIAL (PRIMARY) HYPERTENSION Status: Chronic (3) Hyperlipidemia Code(s): E78.5 - HYPERLIPIDEMIA, UNSPECIFIED Status: Acute - Plan * Atrial Flutter- She is in sinus rhythm post ablation * Stable for discharge home on [facility].
--- NOTE | 2018-07-18 14:23 | PDOC.CTH ---
Cardiology Progress Note - Subjective Mrs Lu seems to be doing fine mild fatigue over yestgerday. No dizzy or LOC. - Objective Vital Signs Temp Pulse Resp BP BP Pulse Ox 07/18/18 08:05 130/71 07/18/18 08:00 98.4 F 66 16 130/71 91 L 07/18/18 07:10 94 L 07/18/18 04:03 116/66 07/18/18 04:00 98.7 F 62 18 116/66 92 L Weight 194 lb 7 oz 07/17/18 07/18/18 07/19/18 06:59 06:59 06:59 Intake Total 120 1440 300 Balance 120 1440 300 - Physical Examination General/Neuro: alert & oriented x3, NAD Neck: carotid US brisk, no JVD present Lungs: CTA, unlabored respirations Heart: PMI normal Abdomen: no HSM - Telemetry Telemetry Rhythm: SR. MIld clement at 8 am while pt is asleep. - Labs Result Diagrams: 07/15/18 17:19 07/13/18 04:36 Troponin/CKMB CK-MB (CK-2) 1.5 ng/mL (0-6.6) 07/12/18 18:23 Troponin I Less than 0.010 ng/mL (< 0.028) 07/12/18 18:23 - Assessment/Plan 1. Atrial flutter, typical -s/p CTI ablation. No further atrial flutter seen since ablation yesterday 2. Junctional bradycardia - resolved with washout of diltiazem. MIld clement during sleep only. -presented once atrial flutter broke during ablation. HR 40s. Asymptomatic at rest and getting OOB. walking not attempted. -possibly related to AV [place] blocking agents she had been received and may resolve as these agents wash out -For now hold off on permanent pacemaker implant. Would consider home monitoring especially if clement symptoms occur. 3. CHADS2-VASC: 3 -placed on lovenox for possible need for PPM - will require continued eliquis x 30 days from time of ablation.
--- NOTE | 2018-07-19 10:28 | DIS ---
DATE OF ADMISSION: 07/12/2018 DATE OF DISCHARGE: 07/18/2018 PRIMARY CARE PHYSICIAN: The patient does not have a primary care physician. DISCHARGE DISPOSITION: Home. PRIMARY DISCHARGE DIAGNOSES: 1. Atrial flutter. 2. Hypertension. 3. Dyslipidemia. 4. Chronic back pain. DISCHARGE MEDICATIONS: Include; 1. Eliquis 5 mg one p.o. twice a day. 2. Lipitor 40 mg at bedtime. 3. Ativan 0.5 mg p.r.n. 4. Gabapentin 300 mg at bedtime. 5. Vitamin B12 10,000 mcg daily. 6. Biotin 500 mcg daily. 7. Vitamin C 500 mg daily. 8. Tylenol 1000 mg q.4 hours as needed. PROCEDURES DONE DURING ADMISSION: The patient had an echocardiogram, in which the ejection fraction was estimated at 50% to 55%. There was moderate aortic regurgitation as well as moderate aortic stenosis. The patient also had a transesophageal echo. There were no intracardiac clots. The EF was estimated at 60% to 65% and there were moderate mitral regurgitation and [id number] aortic regurgitation. The patient had a successful ablation of typical isthmus-dependent flutter. CODE STATUS: Full code. ALLERGIES: CODEINE. HOSPITAL COURSE: Ms. Lu is a pleasant 78-year-old female, who presented to the emergency room with complaints of generalized weakness and palpitations. She was found to be in atrial fibrillation/flutter with rapid ventricular response. She was admitted and started on IV Cardizem. Her heart rate was controlled. She was seen by Cardiology as well as electrophysiology and ultimately underwent isthmus ablation of the atrial flutter. She was monitored in the hospital a couple of days postop and remained in sinus. She had an uneventful hospital course and was able to be discharged to home on Eliquis for stroke prevention. She is also being discharged to home on atorvastatin; however, she stated that she is not planning on picking up that prescription. She was also given a prescription benefit card for the Eliquis. She is to follow up with Cardiology as instructed and also to establish a primary care physician in the community, and follow up in 1 to 2 weeks. Job ID: [id number]
--- NOTE | 2018-07-20 12:05 | EKG ---
Test Reason : ER INDICATION Blood Pressure : / mmHG Vent. Rate : 139 BPM Atrial Rate : 278 BPM P-R Int : 000 ms QRS Dur : 080 ms QT Int : 340 ms P-R-T Axes : 249 003 -77 degrees QTc Int : 517 ms Atrial flutter with 2:1 A-V conduction RSR' or QR pattern in V1 suggests right ventricular conduction delay Marked ST abnormality, possible inferior subendocardial injury Abnormal ECG Confirmed by LEXX REHMAN DO ([id number]), editor managing newspaper TONA EDWARDS ([id number]) on 07/20/2018 12:05:10 PM Referred By: Confirmed By:LEXX REHMAN DO
== END 2018-07-18 11:54 | disposition home or self-care (01) | DRG 274 ==
LOC: ERS 09:01 → 2SE 12:47
PROVIDERS: ADMIT Internal Medicine; ATTEND Internal Medicine
PROC: 02583ZZ Destruction of Conduction Mechanism, Percutaneous Approach (ICD-10-PCS; principal; 2018-07-16)
PROC: 4A023FZ Measurement of Cardiac Rhythm, Percutaneous Approach (ICD-10-PCS; 2018-07-16)
PROC: 4A0234Z Measurement of Cardiac Electrical Activity, Percutaneous Approach (ICD-10-PCS; 2018-07-16)
DX: I48.92 Unspecified atrial flutter (principal); F10.239 Alcohol dependence with withdrawal, unspecified; I48.91 Unspecified atrial fibrillation; I10 Essential (primary) hypertension; E78.5 Hyperlipidemia, unspecified; F17.210 Nicotine dependence, cigarettes, uncomplicated; E66.9 Obesity, unspecified; Z68.31 Body mass index [BMI] 31.0-31.9, adult; G89.29 Other chronic pain; M54.9 Dorsalgia, unspecified; Z88.5 Allergy status to narcotic agent; Z96.653 Presence of artificial knee joint, bilateral; Z79.899 Other long term (current) drug therapy
CPT/HCPCS: 36415; 71045; 72120; 72158; 76942; 80048; 80053; 80061; 81003; 82550; 82553; 82565; 84484; 85025; 85379; 93005; 93306; 93312; 93613; 93623; 93653; 96361; 96365; 96366; 96375; 96376; A9579; C1730; C1769; J1100; J1265; J1644; J2001; J2704; J3010; J7050; Q0162; S0020

== ENCOUNTER 2018-08-23 07:31 | Day surgery (SDC) | payer MEDICARE ==
[2018-08-22 13:43] VITALS: BMI 31.4
--- NOTE | 2018-08-22 13:54 | HP ---
HISTORY OF PRESENT ILLNESS: Ms. Lu is a 78-year-old woman, known to us from previous lumbar decompression, who returns now with a significant left L5 radiculopathy, that has been treated by Dr. Potter with injections, which have been helpful, though short-lived in nature. She hopes to potentially move forward now with surgery if possible. PAST MEDICAL HISTORY: Significant for hypertension, hyperlipidemia, and chronic pain. PAST SURGICAL HISTORY: Neck, unspecified; right foot; left foot; lumbar decompression x3, and 2 additional neck surgeries. PHYSICAL EXAMINATION: The patient is alert and oriented x3. Gait is severely altered. Somewhat reduced strength in ankle dorsiflexion bilaterally. ASSESSMENT: Lumbar radiculopathy. PLAN: Dr. Jones met with the patient, reviewed imaging, and advocated for a left L5 facetectomy. He explained to the patient the risks, benefits, and alternatives to the procedure. The patient expressed understanding and elected to go forward with surgery as discussed. I do believe the patient is mentally competent and capable of making medical decisions for herself. We will move forward with surgery as planned. Job ID: [id number]
[2018-08-23] MEDS ORDERED: CEFAZOLIN 2 GM/50 ML BAG ONE ×2 (07:54→13:42)
[2018-08-23 08:40] LABS: Hemoglobin 14.7 g/dL (12.0-16.0); Mean Corpuscular Hemoglobin 31.7 pg (27.0-31.0); Mean Platelet Volume 8.1 fL (7.4-10.4); Platelet Count 267 thou/uL (130-400); RBC Distribution Width 11.8 % (11.5-14.5); Red Blood Cell (RBC) Count 4.63 mill/uL (4.20-5.40); White Blood Cell (WBC) Count 8.4 thou/uL (4.8-10.8)
[2018-08-23 08:49] LABS: Anion Gap 16 mmol/L (10-20); BUN (Urea Nitrogen) 12 mg/dL (9.8-20.1); Calc. Creatinine Clearance 95 mL/min (70-130); Calcium 9.7 mg/dL (7.8-10.44); Carbon Dioxide 26 mmol/L (23-31); Chloride 104 mmol/L (98-107); Estimated GFR-MDRD 81; Glucose 86 mg/dL (83-110); Potassium 4.6 mmol/L (3.5-5.1); Sodium 141 mmol/L (136-145)
[2018-08-23] MEDS ORDERED: Bupivacaine HCl 0.5%/Epinephrine 1:200,000/PF 30 ml Vial ONE (09:44)
[2018-08-23] MEDS ORDERED: Fentanyl 100 MCG/2 ML VIAL ONE ×2 (10:08→12:17)
[2018-08-23] MEDS ORDERED: Famotidine/PF 20 mg/2ml Vial ONE (10:08)
[2018-08-23] MEDS ORDERED: Lidocaine 1% PF 5 ML VIAL ONE (10:41)
[2018-08-23] MEDS ORDERED: Dexamethasone 20 MG/5 ML VIAL ONE (10:41)
[2018-08-23] MEDS ORDERED: Rocuronium Bromide 10 MG/ML (10ML VIAL) ONE (10:41)
[2018-08-23] MEDS ORDERED: Ketorolac Tromethamine 30 MG/ML VIAL ONE (10:41)
[2018-08-23] MEDS ORDERED: PROPOFOL 200 MG/20 ML VIAL ONE (10:41)
[2018-08-23] MEDS ORDERED: Ondansetron PF 4 MG/2 ML Vial ONE (10:41)
[2018-08-23] MEDS ORDERED: ePHEDrine/0.9% NaCl/PF SYRINGE 50 mg/10 ml ONE ×2 (10:41→11:08)
[2018-08-23] MEDS ORDERED: Glycopyrrolate 0.2 MG/ML 5 ML SYRINGE ONE (10:41)
--- NOTE | 2018-08-23 18:38 | OP ---
DATE OF PROCEDURE: 08/23/2018 CONSOLIDATION ACCOUNTANT: Kvng Mendoza PA-C. INDICATION: Pain. DIAGNOSES: Left L5 radiculopathy, right L4 radiculopathy. PROCEDURES: 1. Reoperation, left L5 facetectomy. 2. Right L4 diskectomy. ANESTHESIA: General. DESCRIPTION OF PROCEDURE: The patient was brought into the operating room, placed under general anesthesia. She was flipped from supine to prone position on the operating room table. A linear incision was planned, spanning L4, L5-S1. The incision was created. The soft tissues were swept away from midline. A self-retaining retractor was placed. After confirming appropriate level with C-arm fluoroscopy and identifying bone defects from her prior L5 procedure, facetectomy was performed on the left side, decompressing the left L5 foramen. The L5 exiting nerve root could be identified. A Zavala ball was passed without obstruction after decompressing this area. I then redirected our attention on the right side at L4, where hemilaminectomy was performed along the inferior aspect of L4 and the superior aspect of L5. The exiting L4 nerve root on the right side was identified as well as a foraminal disk protuberance. An 11 blade knife was used to perform an annulotomy. The disk material was removed until the exiting L4 nerve root was decompressed. The wound was irrigated. Hemostasis was maintained throughout. The wound was then closed in anatomic layers and a pressure dressing was applied. There were no known procedural complications. Job ID: [id number]
== END 2018-08-23 14:20 | disposition home or self-care (01) ==
LOC: SDC 07:31
PROVIDERS: ATTEND Neurological Surgery
PROC: 0SB20ZZ Excision of Lumbar Vertebral Disc, Open Approach (ICD-10-PCS; principal; 2018-08-23)
DX: M54.16 Radiculopathy, lumbar region (principal); I10 Essential (primary) hypertension; I48.3 Typical atrial flutter; I35.0 Nonrheumatic aortic (valve) stenosis; E78.5 Hyperlipidemia, unspecified; Z90.710 Acquired absence of both cervix and uterus; Z90.49 Acquired absence of other specified parts of digestive tract; Z79.82 Long term (current) use of aspirin; Z88.5 Allergy status to narcotic agent; Z98.890 Other specified postprocedural states
CPT/HCPCS: 76000; 80048; 85027; 96374; J0131; J0670; J1100; J1885; J2001; J2405; J2704; J3010; S0028

== ENCOUNTER 2018-10-31 07:33 | Outpatient (CLI) | payer MEDICARE ==
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
== END 2018-10-31 07:34 | disposition home or self-care (01) ==
LOC: TBSIIMAG 07:33
PROVIDERS: ATTEND Neurological Surgery
DX: M54.16 Radiculopathy, lumbar region (principal); K57.30 Diverticulosis of large intestine without perforation or abscess without bleeding; M48.061 Spinal stenosis, lumbar region without neurogenic claudication; Z98.890 Other specified postprocedural states
CPT/HCPCS: 72131

== ENCOUNTER 2018-11-05 04:55 | Outpatient (CLI) | payer MEDICARE | END 2018-11-05 04:56 | disposition home or self-care (01) | LOC: LABBT 04:55 | PROVIDERS: ATTEND Neurological Surgery | DX: Z01.818 Encounter for other preprocedural examination (principal) | CPT/HCPCS: 93005; 93010 ==

== ENCOUNTER 2018-11-11 08:25 | Day surgery (SDC) | payer MEDICARE ==
[2018-11-05 08:49] VITALS: BMI 29.8
--- NOTE | 2018-11-11 07:06 | HP ---
HISTORY OF PRESENT ILLNESS: Ms. Lu is known to us for multiple lumbar decompressions most recently in August at the left L5 foramen. She returns now for extended postoperative followup with recurrence and continuing pain. She now has a new CT scan of the lumbar spine revealing collapse of the left L5 foramina with bone spurring that likely impinges upon the left L5 nerve root and again explains the pain that she continues to experience. She has received an injection, which did help her around a few weeks, but then her pain returned we would either pursue additional pain management or go and do another surgical procedure to reopen this foramen. She is tearful and obviously frustrated, but would rather discuss surgery at this time. PAST MEDICAL HISTORY: Hypertension, hyperlipidemia, and chronic pain. PAST SURGICAL HISTORY: Unspecified neck, right foot; left foot; lumbar decompression x4. PHYSICAL EXAMINATION: The patient is alert and oriented x3. Gait is severely altered and antalgic. Lower extremity motor exam is intact. ALLERGIES: NO KNOWN DRUG ALLERGIES. ASSESSMENT: Lumbar radiculopathy. PLAN: Dr. Jones met with the patient, reviewed imaging, advocated for left L5-S1 facetectomy, and unilateral instrumentation and fusion. He explained to the patient the risks, benefits, and alternatives to the procedure. The patient expressed understanding and elected to move forward with surgery as discussed. I do believe the patient is mentally competent capable of making medical decisions for herself. We will move forward with surgery as planned. Job ID: [id number]
[2018-11-11] MEDS ORDERED: Fentanyl 100 MCG/2 ML VIAL ONE ×2 (10:27→13:50)
[2018-11-11] MEDS ORDERED: Rocuronium Bromide 50 MG/5 ML VIAL ONE (10:28)
[2018-11-11] MEDS ORDERED: Lidocaine 1% PF 5 ML VIAL ONE (10:28)
[2018-11-11] MEDS ORDERED: PROPOFOL 20 ML ONE (10:28)
[2018-11-11] MEDS ORDERED: Thrombin 5000 UNITS/5 ML VIAL ONE (11:17)
[2018-11-11] MEDS ORDERED: Bupivacaine HCl 0.5%/Epinephrine 1:200,000/PF 30 ml Vial ONE (11:17)
[2018-11-11] MEDS ORDERED: Midazolam HCl 2 mg/2 ml Vial ONE (11:31)
[2018-11-11] MEDS ORDERED: Ketamine 50 MG/ML (10ML VIAL) ONE (11:35)
--- NOTE | 2018-11-11 13:34 | OP ---
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 DIAGNOSIS: Left L5 radiculopathy. PROCEDURES PERFORMED: Reoperation with a complete facetectomy, placement of pedicle screws in L5 and S1 with removal of pedicle screws at L5 and S1, placement of allograft, and placement of autograft. ANESTHESIA: General. DESCRIPTION OF PROCEDURE: The patient was brought into the operating room and placed under general anesthesia. She was flipped from the supine to prone position on the operating room table. A linear incision was prepped and draped over the L5-S1 segment, which coincided with the previous incision at that level. After prepping and draping and after an appropriate preoperative pause, an incision was created. The soft tissues were swept left of midline. A self-retaining retractor was placed. The C-arm images were obtained to confirm the appropriate level. After dissecting through scar and identifying the bone defects along the medial aspect of the facet joints at L5-S1, more complete facetectomy was performed over the exiting L5 nerve root until there was no bone left over the facet joint over the L5 nerve root. The L5 pedicle was palpated and the exiting L5 nerve root was identified. Disk material was also removed as well as a component of the superior articulating facet of S1. With the aid of C-arm fluoroscopy, pedicle screws were placed in the pedicles of S1 and L5. I noticed upon the placement of L5 screw, there was a breach in the pedicle, which extended down into the canal portion of the pedicle. As such, I decided to remove the screws as my plan was to perform distraction with the screws rather than to offer stability. Gelfoam pledgets were then placed within the holes of the screw holes. The L5 nerve was again palpated and found to be completely free of compression. The wound was then irrigated. Hemostasis was maintained throughout. The wound was then closed in anatomic layers and a pressure dressing was applied. Surgical modifier will be applied to reflect overdue services secondary to removal of the hardware at end. Job ID: [id number] MTDD
[2018-11-11] MEDS ORDERED: Morphine 4 MG/ML VIAL ONE (13:50)
== END 2018-11-11 15:25 | disposition home or self-care (01) ==
LOC: SDC 08:25
PROVIDERS: ATTEND Neurological Surgery
PROC: 01NB0ZZ Release Lumbar Nerve, Open Approach (ICD-10-PCS; principal; 2018-11-11)
PROC: 0ST40ZZ Resection of Lumbosacral Disc, Open Approach (ICD-10-PCS; 2018-11-11)
DX: M54.16 Radiculopathy, lumbar region (principal); I10 Essential (primary) hypertension; E78.5 Hyperlipidemia, unspecified; Z79.82 Long term (current) use of aspirin; Z79.899 Other long term (current) drug therapy; Z88.5 Allergy status to narcotic agent; Z98.890 Other specified postprocedural states
CPT/HCPCS: 76000; J0670; J2001; J2250; J2270; J2704; J3010

== ENCOUNTER 2019-03-10 09:50 | Outpatient (CLI) | payer MEDICARE ==
--- NOTE | 2019-03-10 10:22 | RAD ---
LUMBAR SPINE 3 VIEWS: HISTORY: Low back pain FINDINGS: Multilevel degenerative changes are present. There is minimal anterolisthesis of L3 over L4 vertebra l bodies. No compression fracture or bony destruction is seen.
== END 2019-03-10 09:51 | disposition home or self-care (01) ==
LOC: RAD-FRANK 09:50
PROVIDERS: ATTEND Nurse Practitioner Family
DX: M54.16 Radiculopathy, lumbar region (principal)
CPT/HCPCS: 72100

== ENCOUNTER 2019-06-02 07:37 | Outpatient (CLI) | payer MEDICARE ==
--- NOTE | 2019-06-02 08:41 | MRI ---
LUMBAR SPINE MRI WITHOUT CONTRAST: DATE: 06/02/2019. COMPARISON: 07/11/2018. HISTORY: Back pain radiating down the left lower extremity. TECHNIQUE: Multiplanar multisequence MR imaging of the lumbar spine obtained without contrast. FINDINGS: The sagittal STIR imaging demonstrates no focal area of osseous marrow edema. There is mild lumbar spine levoscoliosis. T11-12: Disc space narrowing, disc desiccation, and minimal disc bulge. Mild bilateral facet hypertro phy. No significant central canal or neural foraminal stenosis. T12-L1: There is disc space narrowing and disc desiccation with disc bulge. Probable tiny disc protru noel in left paracentral region. Mild left lateral recess stenosis. Bilateral facet hypertrophy, right greater than left. Mild bilateral neural foraminal stenosis. L1-2: There is disc space narrowing and disc desiccation with disc osteophyte complex causing mild ce ntral canal stenosis. Bilateral laminectomy changes are present. There is mild left and moderate right neural foraminal stenosis. L2-3: There is disc desiccation, disc space narrowing, and mild disc bulge. There is mild bilateral n eural foraminal stenosis with mild left and moderate right facet hypertrophy. There is a benign hemangioma at the L3 level. Mild central canal stenosis noted, similar when compared to the prior exa mination. L3-4: There is disc space narrowing and disc desiccation with mild disc bulge. Bilateral facet hypert rophy and hypertrophy of the ligamentum flavum, right greater than left. There is mild central canal stenosis/right lateral recess stenosis, unchanged. No significant neural foraminal stenosis noted on either side. L4-5: There is disc space narrowing and disc desiccation with mild disc bulge. There is bilateral fac et hypertrophy. There is mild stable left neural foraminal stenosis. Severe stable right neural foraminal stenosis. Stable mild central canal stenosis. L5-S1: There is disc space narrowing, disc desiccation, and disc osteophyte complex. There is signifi cant bilateral facet hypertrophy. There is no significant central canal stenosis. There is severe left and mild right neural foraminal stenosis, worsened on the left when compared to the prior examination. The imaged retroperitoneal structures appear grossly unremarkable. The patient appears status post left-sided hemilaminectomy at the L5-S1 level. Postcontrast imaging was not provided which limits detailed assessment of the postoperative spine. IMPRESSION: Postoperative and degenerative changes within the lumbar spine as detailed above. Transcribed Date/Time: 06/02/2019 9:03 AM
== END 2019-06-02 07:38 | disposition home or self-care (01) ==
LOC: BICMRI 07:37
PROVIDERS: ATTEND Nurse Practitioner Family
DX: M47.26 Other spondylosis with radiculopathy, lumbar region (principal); Z98.890 Other specified postprocedural states
CPT/HCPCS: 72148

== ENCOUNTER 2019-10-21 08:03 | Outpatient (CLI) | payer MEDICARE ==
--- NOTE | 2019-10-21 09:47 | MRI ---
MRI LUMBAR SPINE NONCONTRAST: HISTORY: Lumbar radiculopathy. Multiple previous lumbar surgeries. COMPARISON: 06/02/2019. FINDINGS: Stable T1 marrow signal intensity of the lumbar vertebrae. There is intrinsic T1 and T2 hyperintensit y at the L3 level, compatible with vertebral body hemangioma. There is T1 marrow signal hypointensity with associated T2 and STIR hyperintensity involving the posterior left superior endpla te of L2, compatible with type II Modic change. Similar signal intensity is noted along the inferior endplate of L1. Appropriate signal intensity of the visualized paraspinal muscles and solid organs. Conus medullaris terminates at the upper aspect of L1 Spondylolisthesis: L1-L2: 1.7 mm of retrolisthesis. L3-L4: 3.5 mm of anterolisthesis. T12-L1:Disc desiccation with moderate loss of disc space height. Broad-based disc bulge and facet hyp ertrophy result in mild central canal stenosis. Trace amount of fluid in both facet joints. Right neural foramen is patent. Moderate to severe left neural foraminal narrowing. L1-L2:Disc desiccation with moderate loss of disc space height. Posterior decompressive laminectomy d efect. Broad-based disc bulge abuts the thecal sac. There is facet hypertrophy. Mild central canal stenosis. Moderate to severe bilateral neural foraminal narrowing. L2-L3:Disc desiccation with [id number] loss of disc space height. Broad-based disc bulge, ligam ent flavum thickening and facet hypertrophy result in moderate central canal stenosis. Moderate right neural foraminal narrowing. Left neural foramen is patent. L3-L4:Disc desiccation without significant loss of disc space height. Broad-based disc bulge, ligamen t flavum thickening and facet hypertrophy result in mild central canal stenosis. Narrowing of both subarticular zones with partial obscuration of bilateral traversing L4 nerve roots, right greater misbah n left. Moderate right neural foraminal narrowing. Mild left neural foraminal narrowing. L4-L5:Disc desiccation with moderate loss of disc space height. Left and right hemilaminectomy defect . Broad-based disc bulge, ligament flavum thickening and facet hypertrophy result in moderate central canal stenosis. Narrowing of both subarticular zones with obscuration of bilateral traversing L5 nerve roots. Moderate to severe right neural foraminal narrowing. Moderate left neural foraminal narrowing. L5-S1:Desiccation with severe loss of disc space height. Left hemilaminotomy defect. No evidence of s ignificant central canal stenosis. Moderate bilateral neural foraminal narrowing. IMPRESSION: 1. Interval development of type I Modic changes at the L1-L2 disc space. 2. Redemonstration of multilevel spondylolisthesis. 3. Redemonstration of postoperative changes of the lumbar spine. 4. Multilevel degenerative changes of the lumbar spine as described above. Worsening central canal st enosis at L4-L5. Multilevel significant neural foraminal narrowing as described above. Transcribed Date/Time: 10/21/2019 9:59 AM
== END 2019-10-21 08:04 | disposition home or self-care (01) ==
LOC: BICMRI 08:03
PROVIDERS: ATTEND Anesthesiology Pain Medicine
DX: M47.26 Other spondylosis with radiculopathy, lumbar region (principal); M48.061 Spinal stenosis, lumbar region without neurogenic claudication; M43.16 Spondylolisthesis, lumbar region; Z98.890 Other specified postprocedural states
CPT/HCPCS: 72148

== ENCOUNTER 2019-10-28 16:14 | Outpatient (CLI) | payer MEDICARE ==
--- NOTE | 2019-10-28 16:41 | RAD ---
LUMBAR SPINE FOUR VIEWS: 10/28/19 HISTORY: Spondylolisthesis lumbar region without pain. FINDINGS/IMPRESSION: Multilevel degenerative changes are present. No compression fracture is seen. There is minimal alf listhesis of L3 over L4 vertebral body without significant change in alignment on flexion or extensio n. POS: [facility]
== END 2019-10-28 16:15 | disposition home or self-care (01) ==
LOC: BICRAD 16:14
PROVIDERS: ATTEND Anesthesiology Pain Medicine
DX: M43.16 Spondylolisthesis, lumbar region (principal); M47.816 Spondylosis without myelopathy or radiculopathy, lumbar region
CPT/HCPCS: 72110

== ENCOUNTER 2023-05-23 12:59 | Outpatient (CLI) | payer MEDICARE | END 2023-05-23 13:00 | disposition home or self-care (01) | PROVIDERS: ATTEND Nurse Practitioner Family | DX: M21.372 Foot drop, left foot (principal); M54.16 Radiculopathy, lumbar region ==